=== PATIENT | female | born 1990 | race Caucasian/White ===

== ENCOUNTER → 2016-11-05 | Outpatient (CLI) | payer BC | LOC: MOB LAB 15:03 | PROVIDERS: ATTEND Physician Assistant Medical | DX: R10.11 Right upper quadrant pain (principal) | CPT/HCPCS: 87088 ==

== ENCOUNTER → 2016-11-05 | Outpatient (CLI) | payer BC ==
--- NOTE | 2016-11-05 16:17 | DI ---
CT ABDOMEN SCAN WITH IV CONTRAST, 11/05/2016 2:49 PM : Clinical History: Abdominal pain. Previous Exam: None at this facility. Scans are performed from the lower lung bases through the liver and kidneys with IV contrast. 95 ml o f Isovue 300 was injected IV. No oral or rectal contrast was ordered. The lung bases are clear. The liver is normal. The patient is status post cholecystectomy. There is n o abnormality of the spleen, pancreas, and adrenal glands. Both kidneys are normal in size, shape, po sition and contour. There is no hydronephrosis or hydroureter. No renal or ureteral calculi are prese nt. There are no abnormal retrocrural or periaortic nodes. No ascites is present. READING: Normal CT abdomen scan. CT PELVIS SCAN WITH IV CONTRAST, 11/05/2016 2:49 PM: Clinical History: See above. Previous Exam: None at this facility. Scans are performed from just superior to the umbilicus to the symphysis pubis with IV contrast. This is the same bolus of contrast used for the CT scans of the abdomen. Scans through the lower abdomen and pelvis show no masses or abnormal fluid collections. There is no adenopathy. The appendix is not visualized. There is no inflammatory mass either in the cecal tip or in the right lower quadrant. The small bowel, terminal ileum, and ileocecal valve are normal. There i s redundancy of the transverse colon and the sigmoid colon, but the large bowel is otherwise unremark able. There is a small umbilical hernia through which only mesenteric fat has herniated. The uterus a nd right ovary are normal. There is a 3-4 cm diameter cystic low-density structure associated with th e left ovary and this may represent a left ovarian cyst. READIN. There is a 3-4 cm low-density cystic-appearing structure associated with the left ovary. This may represent a left ovarian cyst. 2. The exam is otherwise normal.
== END ==
LOC: MOB LAB 13:42
PROVIDERS: ATTEND Physician Assistant Medical
DX: R10.84 Generalized abdominal pain (principal)
CPT/HCPCS: 74177

== ENCOUNTER → 2016-11-05 | Outpatient (CLI) | payer BC ==
[2016-11-05 14:34] LABS: BASOPHILS # (AUTO) 0.03 10*3/UL; BASOPHILS % (AUTO) 0.5 % (0-1); EOSINOPHILS # (AUTO) 0.08 10*3/UL; EOSINOPHILS % (AUTO) 1.2 % (0-8); HEMATOCRIT 45.1 % (37.0-47.0); LYMPHOCYTES # (AUTO) 1.38 10*3/uL; MEAN CORPUSCULAR HEMOGLOBIN 30.4 PG (27-31); MEAN CORPUSCULAR HGB CONC 33.3 g/dL (33-37); MEAN PLATELET VOLUME 10.3 FL (7.4-12.2); MONOCYTES # (AUTO) 0.36 10*3/UL (0.3-0.8); MONOCYTES % (AUTO) 5.5 % (5-15); NEUTROPHILS # (AUTO) 4.69 10*3/UL; NEUTROPHILS % (AUTO) 71.5 % (50-80); RED BLOOD COUNT 4.94 10^6/uL (4.20-5.40)
[2016-11-05 14:39] LABS: BLOOD UREA NITROGEN 11 mg/dL (7-22); BUN/CREATININE RATIO 13.75 (6-20); CALCIUM 9.3 mg/dL (8.7-10.7); EST GLOMERULAR FILTRATION > 60 (>60 ml/min/1.73m(2)); SERUM ALBUMIN 4.3 g/dL (3.5-4.8)
[2016-11-05 14:40] LABS: PLATELET MORPHOLOGY COMMENT NORMAL MORPHOLOGY (NORM); RBC MORPHOLOGY COMMENT NORMAL MORPHOLOGY (NORM); WBC MORPHOLOGY COMMENT NORMAL MORPHOLOGY (NORM)
== END ==
LOC: CT 15:18
PROVIDERS: ATTEND Physician Assistant Medical
DX: R10.11 Right upper quadrant pain (principal); R10.31 Right lower quadrant pain
CPT/HCPCS: 36415; 80053; 85025

== ENCOUNTER → 2016-11-07 | Outpatient (CLI) | payer BC ==
--- NOTE | 2016-11-07 11:26 | DI ---
HISTORY: Right lower quadrant abdominal pain. COMPARISON: None available. TECHNIQUE: Multiple grayscale and color Doppler sonographic images were obtained through the abdomen to include images through the right lower quadrant. FINDINGS: Examination demonstrates post surgical changes consistent with prior cholecystectomy. The aorta is normal. The pancreas is not seen due to overlying bowel gas. The liver is within normal limits. The common bile duct measures 4 mm. The right kidney is normal without hydronephrosis nor nephrolithiasis. The left kidney is also [place] without hydronephrosis nor nephrolithiasis. The spleen is within normal limits. IMPRESSION: 1. Normal abdominal ultrasound. NOTE: The interpreting Radiologist was not present at the time of ultrasound interrogation.
== END ==
LOC: US 09:36
PROVIDERS: ATTEND Family Medicine
DX: R10.31 Right lower quadrant pain (principal)
CPT/HCPCS: 76700

== ENCOUNTER → 2016-11-07 | Outpatient (CLI) | payer BC ==
[2016-11-07 09:44] LABS: BASOPHILS # (AUTO) 0.03 10*3/UL; BASOPHILS % (AUTO) 0.7 % (0-1); EOSINOPHILS # (AUTO) 0.13 10*3/UL; EOSINOPHILS % (AUTO) 2.9 % (0-8); HEMOGLOBIN 15.1 g/dL (12.0-16.0); LYMPHOCYTES # (AUTO) 1.07 10*3/uL; MEAN CORPUSCULAR HEMOGLOBIN 30.6 PG (27-31); MEAN CORPUSCULAR HGB CONC 33.6 g/dL (33-37); MEAN PLATELET VOLUME 10.2 FL (7.4-12.2); MONOCYTES # (AUTO) 0.36 10*3/UL (0.3-0.8); NEUTROPHILS # (AUTO) 2.91 10*3/UL; NEUTROPHILS % (AUTO) 64.6 % (50-80); RED BLOOD COUNT 4.93 10^6/uL (4.20-5.40)
[2016-11-07 09:48] LABS: PLATELET MORPHOLOGY COMMENT NORMAL MORPHOLOGY (NORM); RBC MORPHOLOGY COMMENT NORMAL MORPHOLOGY (NORM); WBC MORPHOLOGY COMMENT NORMAL MORPHOLOGY (NORM)
[2016-11-07 09:51] LABS: BLOOD UREA NITROGEN 12 mg/dL (7-22); BUN/CREATININE RATIO 13.33 (6-20); CALCIUM 9.4 mg/dL (8.7-10.7); EST GLOMERULAR FILTRATION > 60 (>60 ml/min/1.73m(2)); SERUM ALBUMIN 4.3 g/dL (3.5-4.8)
[2016-11-07 10:40] LABS: ERYTHROCYTE SEDIMENTATION RATE 7 MM/HR (0-20)
== END ==
LOC: MOB LAB 09:04
PROVIDERS: ATTEND Family Medicine
DX: R10.31 Right lower quadrant pain (principal); R94.5 Abnormal results of liver function studies
CPT/HCPCS: 36415; 80053; 85025; 85652; 87088

== ENCOUNTER 2016-11-10 16:53 | Emergency (ER) | payer BC ==
[2016-11-10] MEDS ORDERED: Sodium Chloride 0.9% 1,000 ML PRIMARY IV ONE (17:05)
[2016-11-10 17:16] LABS: BASOPHILS # (AUTO) 0.03 10*3/UL; BASOPHILS % (AUTO) 0.4 % (0-1); EOSINOPHILS # (AUTO) 0.15 10*3/UL; EOSINOPHILS % (AUTO) 2.1 % (0-8); HEMATOCRIT 43.4 % (37.0-47.0); HEMOGLOBIN 14.3 g/dL (12.0-16.0); LYMPHOCYTES # (AUTO) 1.98 10*3/uL; MEAN CORPUSCULAR HEMOGLOBIN 30.2 PG (27-31); MEAN CORPUSCULAR HGB CONC 32.9 g/dL (33-37); MEAN PLATELET VOLUME 9.6 FL (7.4-12.2); MONOCYTES # (AUTO) 0.35 10*3/UL (0.3-0.8); MONOCYTES % (AUTO) 4.9 % (5-15); NEUTROPHILS # (AUTO) 4.68 10*3/UL; NEUTROPHILS % (AUTO) 65.1 % (50-80); PLATELET MORPHOLOGY COMMENT NORMAL MORPHOLOGY (NORM); RBC MORPHOLOGY COMMENT NORMAL MORPHOLOGY (NORM); RED BLOOD COUNT 4.73 10^6/uL (4.20-5.40); WBC MORPHOLOGY COMMENT NORMAL MORPHOLOGY (NORM)
[2016-11-10 17:18] VITALS: RESP 20; TEMP 97.9
[2016-11-10] MEDS: ONDANSETRON 4 MG/2 ML VIAL IVP ONE ×2 (17:20→19:00)
[2016-11-10 17:25] LABS: BLOOD UREA NITROGEN 14 mg/dL (7-22); EST GLOMERULAR FILTRATION > 60 (>60 ml/min/1.73m(2)); SERUM ALBUMIN 4.3 g/dL (3.5-4.8)
[2016-11-10] MEDS ORDERED: MORPHINE SULFATE 4 MG/1 ML IVP ONE (17:55)
--- NOTE | 2016-11-10 18:04 | PDOC ---
Abdomen/Flank HPI - General Chief Complaint: Abdomen Pain Stated Complaint: RLQ pain Date Seen by Provider: 11/10/16 Time Seen by Provider: 17:59 Source: POSITIVE: Patient Exam Limitations: POSITIVE: No limitations Nurse's Notes Reviewed & Considered: Yes - History of Present Illness Initial Comments: Patient comes in today with a chief complaint of abdominal pain. Patient with ongoing abdominal pain that has been present since the of this month. She has been seen at the medical office building, was told she had a urinary tract infection and started on Cipro. She is presently on day #4. CT scan and ultrasound of her abdomen performed on November 07 are both negative acute intra- abdominal abnormalities. CT scan of her abdomen does show a left ovarian cyst. Patient's abdominal pain is chiefly in the right lower quadrant. She states it's better with a heat pack and when she curls up into a position. Patient has had a cholecystectomy. She denies any fevers but does have occasional chills and sweats. She does have nausea but no vomiting. She denies any diarrhea. She does have diarrhea, and difficulty initiating urine stream. Body Location Affected: REPORTS: Abdomen Timing: REPORTS: Constant Duration: <1 week Severity: Moderate Quality: REPORTS: Cramping, "Pain", Stabbing, Throbbing, Tenderness Abdominal Pain Onset Location: REPORTS: RLQ Abdominal Pain Radiation: REPORTS: Flank Context: REPORTS: None Modifying Factors: improves with: Lying down (Curled into a position is best.) Associated Symptoms: REPORTS: Back pain (Right CVA), Chills, Diaphoresis, Nausea , Dysuria Similar Symptoms Previously: Yes Recent Care Received: REPORTS: Recently Seen, Treated by MD Any Prior Injuries Related to Current Complaint?: No - Patient Home Medications Home Medications: Home Medications EPINEPHrine Auto-Injector [Epipen Inj] 0.3 mg IM PRN PRN 04/20/14 diphenhydrAMINE HCl [Benadryl] 25 mg PO PRN PRN 04/20/14 Albuterol Sulfate [Proair Hfa] 1 - 2 puff INH Q4-6H #1 puff 06/20/15 Amitriptyline HCl 2 tab PO QHS #60 tab 05/15/16 Quetiapine Fumarate [Seroquel] 200 mg PO QHS #30 tab 05/15/16 Norethindrone [Jolivette] 1 tab PO DAILY #30 tab 06/12/16 Oxycodone HCl/Acetaminophen [Percocet 5-325 Mg Tablet] 1 - 2 tab PO Q6H #20 tab 11/05/16 Ciprofloxacin HCl 1 tab PO BID #20 tab 11/07/16 - Patient Allergies Allergies/Adverse Reactions: Allergies Allergy/AdvReac Type Severity Reaction Status Date / Time celery Allergy SWELLING Verified 11/10/16 17:02 pineapple Allergy multiple Verified 11/10/16 17:02 strawberry Allergy Anaphylaxis Verified 11/10/16 17:02 apples Allergy ANAPHLAXIS Uncoded 11/10/16 17:02 broccli Allergy Anaphylaxis Uncoded 11/10/16 17:02 lettuce Allergy SWELLING Uncoded 11/10/16 17:02 malted barley Allergy CHEST PAIN Uncoded 11/10/16 17:02 OR TIGHTNESS MULTIPLE ENVIRONMENTAL Allergy Anaphylaxis Uncoded 11/10/16 17:02 oranges Allergy ANAPHLAXIS Uncoded 11/10/16 17:02 perfumes Allergy SHORTNESS Uncoded 11/10/16 17:02 OF BREATH real vanilla Allergy NOT Uncoded 11/10/16 17:02 APPLICABLE smoke Allergy SHORTNESS Uncoded 11/10/16 17:02 OF BREATH sweet peas Allergy Anaphylaxis Uncoded 11/10/16 17:02 sweet potatoes Allergy Anaphylaxis Uncoded 11/10/16 17:02 tea Allergy ANAPHLAXIS Uncoded 11/10/16 17:02 Past Medical History - heen HEENT History: Denies History Additional HEENT History: SEVERE ALLERGIES Cardiovascular History: Denies History Respiratory History: Asthma, Shortness of Breath Additional Respiratory History: SEVERE ALLERGY INDUCED ASTHMA Gastrointestinal History: Peptic Ulcer Disease, Gallbladder Disease Additional Gastrointestinal History: GB REMOVED Genitourinary History: Denies History Endocrine History: Denies History Musculoskeletal History: Denies History Prosthesis or Implant: No Additional Musculoskeletal History: cartilidge in chest swollen due to previous allergy attack- takes amitriptyline Neurological History: [place] Palsy 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 tonsils '. dental Anesthesia Reactions: No Malignant Hyperthermia: No Significant Family History: Asthma, Heart disease, Diabetes, Hypertension ROS - Limitations ROS Limitations: No Limitations Constitution: REPORTS: Chills, Diaphoresis Cardiovascular: REPORTS: Denies Cardiac Symptoms Respiratory: REPORTS: Denies Resp Symptoms Neurological: REPORTS: Denies Neuro Symptoms Gastrointestinal: REPORTS: Abdominal Pain, Nausea Endocrine: REPORTS: Denies Symptoms Musculoskeletal: REPORTS: Back Pain Genitourinary: REPORTS: Dysuria, Difficulty Urinating Eyes: REPORTS: Denies Symptoms ENT: REPORTS: Denies Symptoms Skin: REPORTS: Denies Skin Symptoms Lympathic: REPORTS: Denies Lympathic Symptoms Immunologic: POSITIVE: Denies Symptoms Psychiatric: POSITIVE: Denies Psych Symptoms Abdominal/Flank Pain PE - General Appearance General Appearance: POSITIVE: Alert, Cooperative, No Evidence of Trauma, Moderate Distress - HEENT HEENT: POSITIVE: Head Inspection Nml, Eyes Inspection Nml, Ears Inspection Nml, Nose Inspection Nml, PERRL, EOMI - Neck Neck: POSITIVE: Normal Inspection, No Apparent Injury - Respiratory Respiratory: POSITIVE: No Respiratory Distress, Breath Sounds Normal, Chest Non- Tender - Cardiovascular Cardiovascular: POSITIVE: Regular Rate and Rhythm, Heart Sounds Normal - Chest Chest: POSITIVE: Non Tender - Abdomen Abdomen: Soft: (All Quadrants), Normal Bowel Sounds: (All Quadrants), Denies Tenderness: (LUQ), (LLQ), (RUQ), No Splenomegaly: (All Quadrants), No Hepatomegaly: (All Quadrants), Tenderness Noted: (RLQ) - Back Back: POSITIVE: CVA Tenderness (R) - Skin Skin: POSITIVE: Intact, Normal For Race, Warm, Dry, No Rash - Extremities Extremity: Non-Tender: (All Extremities), Normal ROM: (All Extremities), Normal Inspection: (All Extremities) - Neurological Neurological: POSITIVE: Affect Apporpriate, Oriented X3 - Psychological Psychiatric: POSITIVE: Affect Appropriate Abdomen Progress - Results Reviewed by me Xrays/CTs/US Reviewed by me: Yes Discussed with Radiologist: Yes Lab Results Reviewed: Yes Lab Results:: Laboratory Results 11/10/16 11/10/16 11/10/16 Range/Units 17:05 17:12 17:55 WBC 7.19 (4.8-10.8) 10^3/uL RBC 4.73 (4.20-5.40) 10^6/uL Hgb 14.3 (12.0-16.0) g/dL Hct 43.4 (37.0-47.0) % MCV 91.8 (81-99) FL MCH 30.2 (27-31) PG MCHC 32.9 L (33-37) g/dL RDW Std Deviation 43.5 (39-50) fL RDW Coeff of Claire 13.2 (11.5-14.5) % Plt Count 208 (140-350) 10*3/uL MPV 9.6 (7.4-12.2) FL Immature Gran % (Auto) 0 (0-5) % Neut % (Auto) 65.1 (50-80) % Lymph % (Auto) 27.5 (10-50) % [place] % (Auto) 4.9 L (5-15) % Eos % (Auto) 2.1 (0-8) % Baso % (Auto) 0.4 (0-1) % Immature Gran # (Auto) 0 10*3/UL Neut # (Auto) 4.68 10*3/UL Lymph # (Auto) 1.98 10*3/uL [place] # (Auto) 0.35 (0.3-0.8) 10*3/UL Eos # (Auto) 0.15 10*3/UL Baso # (Auto) 0.03 10*3/UL WBC Morphology Comment Normal morphology (NORM) Plt Morphology Comment Normal morphology (NORM) RBC Morph Comment Normal morphology (NORM) Sodium 140 (135-145) meq/L Potassium 3.9 (3.8-5.2) meq/L Chloride 108 (98-112) meq/L Carbon Dioxide 22 L (23-33) meq/L Anion Gap 10 (5-20) BUN 14 (7-22) mg/dL Creatinine 0.8 (0.50-1.20) mg/dL Estimated GFR > 60 (>60 ml/min/1.73m(2)) BUN/Creatinine Ratio 17.50 (6-20) Glucose 110 (78-110) mg/dL Calculated Osmolality 291.0 (267-292) mOsm/kg Calcium 9.0 (8.7-10.7) mg/dL Magnesium 2.1 (1.6-2.4) mg/dL Total Bilirubin 0.3 (0.3-1.2) mg/dL AST 36 (8-39) IU/L ALT 46 D (9-52) IU/L Alkaline Phosphatase 54 (38-126) IU/L Total Protein 7.1 (6.1-8.0) g/dL Albumin 4.3 (3.5-4.8) g/dL Globulin 2.9 (2.50-4.10) g/dL Albumin/Globulin Ratio 1.40 (1.3-2.0) mg/g Serum HCG, Qual Negative Ur Collection Type Clean catch urine Urine Color Yellow Urine Clarity Clear (CLEAR) Urine pH 7.0 (5.0-8.5) Ur Specific [place] 1.025 (1.005-1.030) Urine Protein 30 (NEG) mg/dl Urine Glucose (UA) Negative (NEG) mg/dL Urine Ketones Trace (NEG) Urine Occult Blood Negative (NEG) Urine Nitrate Negative (NEG) Urine Bilirubin Small (NEG) Urine Urobilinogen 1.0 (0.2) EU/dL Ur Leukocyte Esterase Trace (NEG) Urine RBC 3-5 (NONE) /hpf Urine WBC 10-15 (NONE) Ur Squamous Epith Cells Rare (NONE) Ur Renal Epithelial Cell None (NONE) Urine Crystals None Urine Bacteria Few (NONE) Urine Casts None (NONE) Urine Mucus None (NONE) Urine Trichomonas None (NONE) Urine Yeast None (NONE) Ur Culture Indicated? Culture set - Patient's Progress Pain Medication Addressed: POSITIVE: Yes Re-examine Time: 20:55 Status: POSITIVE: Unchanged MDM / ED Course: She was evaluated, IV started with blood drawn and sent to lab for studies, ultrasound of her abdomen was obtained. Patient received a liter of normal saline, morphine sulfate, Zofran and had minimal improvement. Findings: CBC is unremarkable, compensated metabolic panel is unremarkable, ultrasound of her abdomen shows no acute findings. Urinalysis shows few bacteria. Assessment: Abdominal pain, urinary tract infection presently on Cipro. Plan: Discharge home continue his Cipro, clear liquids tonight and advance diet as tolerated tomorrow. Follow up with primary care physician this week. - Consult Counseled: POSITIVE: Patient, Family, RE: Lab Results, RE: Radiology Results, RE : DX, RE: Need for F/U Patient Care Time - Estimated PCT Patient Care Time (In Minutes): 30 Vital Signs - Recent Vital Signs Vital Signs: Vital Signs (Last 8 hours) Temp Pulse Resp BP Pulse Ox 11/10/16 16:53 97.9 F 80 20 119/84 96 - VS Reviewed Vital Signs Reviewed: Yes Discharge Clinical Impression: Abdominal pain Discharge Disposition: Discharged to Home Condition: Stable Patient Instructions Given at Discharge: Acute Abdominal Pain (ED)
[2016-11-10 18:22] LABS: CLARITY,URINE CLEAR (CLEAR); COLOR,URINE YELLOW; PROTEIN,URINE 30 mg/dl (NEG); URINE SAMPLE TYPE CLEAN CATCH URINE
[2016-11-10 18:23] LABS: BACTERIA,URINE FEW; BILIRUBIN,URINE SMALL (NEG); GLUCOSE, URINE (UA) NEGATIVE (NEG); NITRATE,URINE NEGATIVE (NEG); OCCULT BLOOD,URINE NEGATIVE (NEG); SQUAMOUS EPITHELIAL CELL,UR RARE
[2016-11-10] MEDS ORDERED: KETOROLAC 30 MG/1 ML VIAL IVP ONE (18:54)
--- NOTE | 2016-11-10 20:24 | DI ---
US ABDOMEN LIMITED,11/10/2016 6:53 PM: Clinical History: Right lower quadrant pain with urinary tract infection. Previous Exam: None at this facility. Findings: Multiple sonographic images are obtained through the abdomen demonstrating a normal common bile duct measured 4 mm. The kidneys are normal bilaterally with the right kidney measuring 10.0 cm in length a nd left kidney measured 10.6 cm in length. There is normal blood flow. The urinary bladder is not well distended and therefore not evaluated. The ureteral jets were not seen. Visualized portions of the liver are unremarkable. Impression: Limited abdominal ultrasound without evidence of acute intra-abdominal pathology.
== END 2016-11-10 21:03 | disposition home or self-care (01) ==
LOC: ER 16:53
DX: R10.31 Right lower quadrant pain (principal)
CPT/HCPCS: 76705; 80053; 81001; 81003; 83735; 84703; 85025; 87088; 96374; 96375; 99283 ×2; J1885; J2270; J2405; J7030

== ENCOUNTER → 2016-11-13 | Outpatient (CLI) | payer BC | LOC: MOB LAB 12:09 | PROVIDERS: ATTEND Nurse Practitioner Family | DX: N89.8 Other specified noninflammatory disorders of vagina (principal); R10.2 Pelvic and perineal pain | CPT/HCPCS: 87480; 87510; 87660 ==

== ENCOUNTER → 2016-11-14 | Outpatient (CLI) | payer BC ==
--- NOTE | 2016-11-17 08:51 | DI ---
US PELVIC-TRANSVAGINAL,11/14/2016 10:05 AM: Clinical History: Right lower quadrant pain Previous Exam: None at this facility. Findings: Multiple transvaginal grayscale and color Doppler sonographic images are obtained through the pelvis demonstrating a normal-appearing uterus measuring 7.6 x 3.7 x 4.4 cm containing an endometrial stripe measuring 5 mm. There are a few nabothian cysts noted. The ovaries are both within normal limits contain multiple maturing follicles and demonstrating [place] venous and arterial Doppler waveforms. The left ovary measured 3.6 x 1.8 x 3.0 cm and the right ovary measured 3.4 x 2.4 x 2.5 cm. Impression: Normal pelvic ultrasound.
== END ==
LOC: US 10:00
PROVIDERS: ATTEND Nurse Practitioner Family
DX: R10.31 Right lower quadrant pain (principal); N89.8 Other specified noninflammatory disorders of vagina; N83.202 Unspecified ovarian cyst, left side
CPT/HCPCS: 76830

== ENCOUNTER → 2016-12-11 | Outpatient (CLI) | payer BC ==
[2016-12-11 15:41] LABS: HEMATOCRIT 44.3 % (37.0-47.0); HEMOGLOBIN 14.6 g/dL (12.0-16.0); MEAN CORPUSCULAR HEMOGLOBIN 30.4 PG (27-31); MEAN CORPUSCULAR VOLUME 92.1 FL (81-99); MEAN PLATELET VOLUME 10.2 FL (7.4-12.2); RED BLOOD COUNT 4.81 10^6/uL (4.20-5.40)
[2016-12-11 15:55] LABS: BLOOD UREA NITROGEN 13 mg/dL (7-22); BUN/CREATININE RATIO 16.25 (6-20); C-REACTIVE PROTEIN 1.5 mg/dL (0.0-0.9); CALCIUM 9.2 mg/dL (8.7-10.7); EST GLOMERULAR FILTRATION > 60 (>60 ml/min/1.73m(2)); LIPASE 133 IU/L (23-300); SERUM ALBUMIN 4.3 g/dL (3.5-4.8)
== END ==
LOC: MOB LAB 14:05
PROVIDERS: ATTEND Student in an Organized Health Care Education/Training Program
DX: R10.31 Right lower quadrant pain (principal)
CPT/HCPCS: 36415; 80053; 82150; 83690; 84443; 85027; 85652; 86140

== ENCOUNTER → 2017-01-09 | Outpatient (CLI) | payer OTHER, BC ==
--- NOTE | 2017-01-11 15:04 | DI ---
MRI UP EXTREMITY JNT W/O CN,01/09/2017 11:20 AM: Clinical History: Wrist fracture with surgery in September of 2005 now complaining of pain and swellin g throughout the wrist joint. Previous Exam: August 29, 2015 Findings: Multiplanar MR images are obtained through the right wrist without contrast. Alignment is anatomic. N o fractures are seen. Marrow signal is preserved. The ulnar styloid is intact. There are a few stable hyperdense rings within the lunate bone. It The triangular fibrocartilage complex appears to be intact. The dorsal and volar radial styloid ligaments are intact. The foveal and styloid attachments are inta ct. There are some metallic blooming artifacts noted within the dorsum of the right wrist. The major vascular flow voids are unremarkable. Articular cartilage is unremarkable. There is no evidence of joint effusion. Signal within the musculature is unremarkable as well. The median nerve is normal. Extensor and flexor tendons are unremarkable. Impression: Postsurgical changes noted without underlying specific abnormalities identified.
== END ==
LOC: MRI 10:56
PROVIDERS: ATTEND Physician Assistant Surgical
DX: M25.531 Pain in right wrist (principal)
CPT/HCPCS: 73221

== ENCOUNTER → 2017-02-10 | Outpatient (CLI) | payer OTHER, BC ==
[2017-02-10 15:16] LABS: BASOPHILS # (AUTO) 0.08 10*3/UL; EOSINOPHILS # (AUTO) 0.15 10*3/UL; EOSINOPHILS % (AUTO) 1.9 % (0-8); HEMATOCRIT 43.8 % (37.0-47.0); HEMOGLOBIN 14.2 g/dL (12.0-16.0); MEAN CORPUSCULAR HEMOGLOBIN 29.8 PG (27-31); MEAN CORPUSCULAR HGB CONC 32.4 g/dL (33-37); MEAN PLATELET VOLUME 9.6 FL (7.4-12.2); MONOCYTES # (AUTO) 0.44 10*3/UL (0.3-0.8); MONOCYTES % (AUTO) 5.5 % (5-15); NEUTROPHILS # (AUTO) 4.85 10*3/UL; NEUTROPHILS % (AUTO) 61.1 % (50-80); PLATELET MORPHOLOGY COMMENT NORMAL MORPHOLOGY (NORM); RBC MORPHOLOGY COMMENT NORMAL MORPHOLOGY (NORM); RED BLOOD COUNT 4.76 10^6/uL (4.20-5.40); WBC MORPHOLOGY COMMENT NORMAL MORPHOLOGY (NORM)
== END ==
LOC: LAB 14:57
PROVIDERS: ATTEND Orthopaedic Surgery
DX: Z01.818 Encounter for other preprocedural examination (principal); M25.531 Pain in right wrist
CPT/HCPCS: 36415; 85025

== ENCOUNTER 2019-06-07 17:49 | Observation (INO) ==
[2019-06-07] MEDS: Sodium Chloride 0.9% 1,000 ML PRIMARY IV SCH ×2 (19:40→22:16)
[2019-06-07 20:06] LABS: Hematocrit [HCT] 39.5 % (37.0-47.0); Hemoglobin [HGB] 12.9 g/dL (12.0-16.0); MEAN CORPUSCULAR HGB CONC 32.7 g/dL (33-37); MEAN CORPUSCULAR VOLUME 93.4 FL (81-99); MEAN PLATELET VOLUME 10.7 FL (7.4-12.2); RED BLOOD COUNT 4.23 10^6/uL (4.20-5.40)
[2019-06-07 20:08] LABS: BILIRUBIN,URINE NEGATIVE (NEG); CLARITY,URINE CLEAR (CLEAR); COLOR,URINE YELLOW; GLUCOSE, URINE (UA) NEGATIVE (NEG); OCCULT BLOOD,URINE NEGATIVE (NEG); PH,URINE 6.5 (5.0-8.5); PROTEIN,URINE NEGATIVE (NEG); UROBILINOGEN,URINE 0.2 mg/dL (0.2)
[2019-06-07 20:12] LABS: SQUAMOUS EPITHELIAL CELL,UR FEW; URINE SAMPLE TYPE VOIDED SPECIMEN; WBC,URINE 0-3
[2019-06-07] MEDS ORDERED: NIFEdipine 10 MG CAPSULE PO SCH (20:15)
[2019-06-07 20:17] LABS: BLOOD UREA NITROGEN 6 mg/dL (7-22); SERUM ALBUMIN 3.5 g/dL (3.5-4.8)
[2019-06-07] MEDS: NIFEdipine 10 MG CAPSULE PO SCH ×3 (20:38→21:22)
[2019-06-07] MEDS ORDERED: LIDOCAINE W/ SODIUM BICARB 0.5 ML SYR SUBD PRN (21:38)
[2019-06-07] MEDS ORDERED: Ondansetron ODT Tab 4 MG TAB PO PRN (21:38)
[2019-06-07] MEDS ORDERED: ONDANSETRON 4 MG/2 ML VIAL IVP PRN (21:38)
[2019-06-07] MEDS ORDERED: CALCIUM CARBONATE 500 MG (TUMS) CHEWABLE TABLET PO PRN (21:38)
[2019-06-08] MEDS: NIFEdipine 10 MG CAPSULE PO SCH ×3 (01:11→08:57)
[2019-06-08] MEDS: Sodium Chloride 0.9% 1,000 ML PRIMARY IV SCH (05:26)
[2019-06-08 07:19] VITALS: BP 107/64; RESP 18; TEMP 98; O2SAT 97
[2019-06-08] MEDS ORDERED: Prenatal Multivitamin Tab 1 TAB TAB PO SCH (09:00)
== END 2019-06-08 09:00 | disposition home or self-care (01) ==
LOC: OBIP 17:49 → OBOP 17:49
PROVIDERS: ADMIT Obstetrics & Gynecology; ATTEND Obstetrics & Gynecology

== ENCOUNTER 2019-06-13 11:56 | Observation (INO) ==
[2019-06-13] MEDS ORDERED: Lactated Ringers 1,000 ML PRIMARY IV ONE ×2 (13:02→13:07)
[2019-06-13] MEDS: Lactated Ringers 1,000 ML PRIMARY IV SCH ×2 (14:14→18:20)
[2019-06-13] MEDS ORDERED: BETAMET ACET/BETAMET NA PH 6 MG/1 ML - 5 ML ONE (15:25)
[2019-06-13] MEDS ORDERED: BETAMET ACET/BETAMET NA PH 6 MG/1 ML - 5 ML IM SCH (15:45)
[2019-06-13 16:41] LABS: BILIRUBIN,URINE NEGATIVE (NEG); CLARITY,URINE Slightly Cloudy (CLEAR); COLOR,URINE YELLOW; GLUCOSE, URINE (UA) NEGATIVE (NEG); OCCULT BLOOD,URINE Trace-intact (NEG); PROTEIN,URINE NEGATIVE (NEG); UROBILINOGEN,URINE 0.2 mg/dL (0.2)
[2019-06-13 16:48] LABS: RBC,URINE 0-1 /hpf; SQUAMOUS EPITHELIAL CELL,UR MODERATE
[2019-06-13 16:49] LABS: BACTERIA,URINE MODERATE
[2019-06-13 16:50] LABS: URINE SAMPLE TYPE CLEAN CATCH URINE
[2019-06-13] MEDS ORDERED: TERBUTALINE SULFATE 1 MG/1 ML SDV IV ONE (17:45)
[2019-06-13] MEDS ORDERED: LIDOCAINE W/ SODIUM BICARB 0.5 ML SYR SUBD PRN (17:51)
[2019-06-13] MEDS ORDERED: Ondansetron ODT Tab 4 MG TAB PO PRN (17:51)
[2019-06-13] MEDS ORDERED: ONDANSETRON 4 MG/2 ML VIAL IVP PRN (17:51)
[2019-06-13] MEDS ORDERED: CALCIUM CARBONATE 500 MG (TUMS) CHEWABLE TABLET PO PRN (17:51)
[2019-06-13 18:44] LABS: BILIRUBIN,URINE NEGATIVE (NEG); CLARITY,URINE CLEAR (CLEAR); COLOR,URINE YELLOW; GLUCOSE, URINE (UA) NEGATIVE (NEG); OCCULT BLOOD,URINE NEGATIVE (NEG); PROTEIN,URINE NEGATIVE (NEG); UROBILINOGEN,URINE 0.2 mg/dL (0.2)
[2019-06-13 18:48] LABS: BACTERIA,URINE FEW; SQUAMOUS EPITHELIAL CELL,UR MODERATE; URINE SAMPLE TYPE VOIDED SPECIMEN
[2019-06-13 19:14] LABS: Hematocrit [HCT] 40.8 % (37.0-47.0); Hemoglobin [HGB] 13.1 g/dL (12.0-16.0); RED BLOOD COUNT 4.33 10^6/uL (4.20-5.40)
[2019-06-13 19:15] LABS: MEAN CORPUSCULAR HGB CONC 32.1 g/dL (33-37); MEAN CORPUSCULAR VOLUME 94.2 FL (81-99); MEAN PLATELET VOLUME 10.2 FL (7.4-12.2)
[2019-06-13 19:20] LABS: BLOOD UREA NITROGEN 5 mg/dL (7-22); BUN/CREATININE RATIO 8.33 (6-20); SERUM ALBUMIN 3.6 g/dL (3.5-4.8); Uric Acid 3.5 mg/dl (2.5-6.2)
[2019-06-13] MEDS: NIFEdipine 10 MG CAPSULE PO SCH ×2 (20:18→23:53)
[2019-06-14] MEDS: NIFEdipine 10 MG CAPSULE PO SCH ×2 (03:50→08:07)
[2019-06-14 08:24] VITALS: BP 118/65; RESP 16; TEMP 97.5; O2SAT 98
[2019-06-14] MEDS ORDERED: Prenatal Multivitamin Tab 1 TAB TAB PO SCH (09:00)
== END 2019-06-14 09:10 | disposition home or self-care (01) ==
LOC: OBIP 11:56 → OBOP 11:56
PROVIDERS: ADMIT Student in an Organized Health Care Education/Training Program; ATTEND Student in an Organized Health Care Education/Training Program

== ENCOUNTER 2019-08-02 00:35 | Inpatient (IN) ==
[2019-08-02] MEDS ORDERED: TERBUTALINE SULFATE 1 MG/1 ML SDV SUBCUT PRN (00:54)
[2019-08-02] MEDS ORDERED: FAMOTIDINE 20 MG/2 ML VIAL IVP PRN ×2 (00:54)
[2019-08-02] MEDS ORDERED: Lidocaine 1% 10 MG/ML - 20 ML VIAL SUBCUT PRN (00:54)
[2019-08-02] MEDS ORDERED: LIDOCAINE W/ SODIUM BICARB 0.5 ML SYR SUBD PRN (00:54)
[2019-08-02] MEDS ORDERED: CALCIUM CARBONATE 500 MG (TUMS) CHEWABLE TABLET PO PRN ×2 (00:54→11:32)
[2019-08-02] MEDS ORDERED: Carboprost Inj 250 MCG/ML AMP IM PRN (00:54)
[2019-08-02] MEDS ORDERED: Nalbuphine Inj 20 MG/ML Ampule IVP PRN ×2 (00:54→11:32)
[2019-08-02] MEDS ORDERED: Naloxone Inj 0.01 MG in Sodium Chloride 0.9% vial 1 ML IVP PRN (00:54)
[2019-08-02] MEDS ORDERED: NALOXONE 0.4 MG/1 ML VIAL IVP PRN (00:54)
[2019-08-02] MEDS ORDERED: fentaNYL Inj 100 MCG/2 ML VIAL IVP PRN (00:54)
[2019-08-02] MEDS ORDERED: CefOXitin Inj 2 GM in Sodium Chloride 0.9% 100 ML IV PRN (00:54)
[2019-08-02] MEDS ORDERED: Zolpidem Tab 5 MG TAB PO PRN (00:54)
[2019-08-02] MEDS ORDERED: CITRIC ACID/SODIUM CITRATE 30 ML CUP PO PRN (00:54)
[2019-08-02] MEDS ORDERED: MISOPROSTOL 200 MCG TABLET RECTAL PRN (00:54)
[2019-08-02] MEDS ORDERED: LIDOCAINE HCL 2 % 10 ML JELLY URO-JECT TOPICAL PRN ×2 (00:54→11:32)
[2019-08-02] MEDS ORDERED: Phenylephrine Inj 50 MCG in Sodium Chloride 0.9% vial 0.5 ML IVP PRN (00:54)
[2019-08-02] MEDS ORDERED: Metoclopramide Inj 10 MG/2 ML VIAL IV PRN (00:54)
[2019-08-02] MEDS ORDERED: diphenhydrAMINE 50 MG/1 ML VIAL IVP PRN ×2 (00:54→11:32)
[2019-08-02] MEDS ORDERED: Misoprostol Tab 100 MCG TAB VAGINAL PRN (00:54)
[2019-08-02] MEDS ORDERED: METHYLERGONOVINE MALEATE 0.2 MG/1 ML VIAL IM PRN (00:54)
[2019-08-02] MEDS ORDERED: ONDANSETRON 4 MG/2 ML VIAL IVP PRN ×2 (00:54→11:32)
[2019-08-02] MEDS ORDERED: BUTORPHANOL TARTRATE 2 MG/1 ML VIAL IVP PRN (00:54)
[2019-08-02] MEDS ORDERED: OXYTOCIN 10 UNIT/1 ML IM PRN (00:54)
[2019-08-02] MEDS ORDERED: Oxytocin 20 Units + LR 20 UNIT/1,000 ML BAG IV SCH ×4 (01:00→11:32)
[2019-08-02 01:19] LABS: Hematocrit [HCT] 38.3 % (37.0-47.0); Hemoglobin [HGB] 12.4 g/dL (12.0-16.0); MEAN CORPUSCULAR HGB CONC 32.4 g/dL (33-37); MEAN CORPUSCULAR VOLUME 90.3 FL (81-99); MEAN PLATELET VOLUME 10.6 FL (7.4-12.2); RED BLOOD COUNT 4.24 10^6/uL (4.20-5.40)
[2019-08-02] MEDS: Lactated Ringers-OB Dept 1,000 ML PRIMARY IV SCH ×3 (01:30→10:06)
[2019-08-02] MEDS ORDERED: PENICILLIN G POTASSIUM 5,000,000 UNIT SDV IV ONE (01:58)
[2019-08-02] MEDS ORDERED: Misoprostol Tab 100 MCG TAB ONE (01:58)
[2019-08-02] MEDS ORDERED: Sodium Chloride 0.9% 100 ML IV ONE (01:59)
[2019-08-02] MEDS ORDERED: Fent/Bupiv 2mcg/0.0625% Epid 250 ML ONE (07:56)
[2019-08-02 09:10] VITALS: RESP 18
[2019-08-02] MEDS ORDERED: fentaNYL 2 MCG/BUPIVACAINE 0.0625%/NS 0.9% 250 ML BAG EPIDURAL ONE (09:43)
[2019-08-02] MEDS ORDERED: Lidocaine 1% 10 MG/ML - 20 ML VIAL INTRADERM PRN (11:32)
[2019-08-02] MEDS ORDERED: BENZOCAINE/MENTHOL SPRAY 56 GM BOTTLE TOPICAL PRN (11:32)
[2019-08-02] MEDS ORDERED: ACETAMINOPHEN 325 MG TABLET PO PRN (11:32)
[2019-08-02] MEDS ORDERED: IBUPROFEN 800 MG TABLET PO PRN (11:32)
[2019-08-02] MEDS ORDERED: Ondansetron ODT Tab 4 MG TAB PO PRN (11:32)
[2019-08-02] MEDS ORDERED: diphenhydrAMINE 25 MG CAPSULE PO PRN (11:32)
[2019-08-02] MEDS ORDERED: GLYCERIN/WITCH HAZEL 1 BOX TOPICAL PRN (11:32)
[2019-08-02] MEDS ORDERED: LANOLIN HPA 40 GM TUBE TOPICAL PRN (11:32)
[2019-08-03 04:46] LABS: Hematocrit [HCT] 41.5 % (37.0-47.0); Hemoglobin [HGB] 13.2 g/dL (12.0-16.0); MEAN CORPUSCULAR HGB CONC 31.8 g/dL (33-37); MEAN CORPUSCULAR VOLUME 91.4 FL (81-99); MEAN PLATELET VOLUME 10.7 FL (7.4-12.2); RED BLOOD COUNT 4.54 10^6/uL (4.20-5.40)
[2019-08-03 04:47] VITALS: BP 109/68; TEMP 97.6; O2SAT 98
[2019-08-03] MEDS: DOCUSATE 100 MG CAPSULE PO SCH ×2 (08:31→09:15)
[2019-08-03] MEDS ORDERED: Prenatal Multivitamin Tab 1 TAB TAB PO SCH (09:00)
== END 2019-08-03 13:45 | disposition home or self-care (01) | DRG 807 ==
LOC: OBIP 00:35
PROVIDERS: ADMIT Student in an Organized Health Care Education/Training Program; ATTEND Student in an Organized Health Care Education/Training Program